=== PATIENT | male | born 1940 | race Caucasian/White ===

== ENCOUNTER 2017-08-20 06:54 | Day surgery (SDC) | payer OTHER ==
[~2017-08-20] VITALS: Ht 177.8 cm; Wt 88.9 kg
[~2017-08-20 06:54] MED LIST: ASPI81EC PO; Aspirin EC81 MG PO; CARV6.25 PO; CENTRUM SILVER1 EAC2 PO; Crestor20 MG PO; DOCU100 PO; ERGO50000 PO; GLUCOSAMINE PO; HYDACE5 PO; HYDCHL25 PO; IRON325 MG PO; Multivitamin1 EAC1 PO; NEBI5 PO; OMEP20ER PO; OXYACE5T PO; POTCHL20ER PO; RANI150 PO; ROSU10TA PO; TAMS.4ER PO; WARF4 PO; Zantac150 MG PO
[2017-08-20] MEDS ORDERED: OMEPRAZOLE MAGN20 MG PO (07:50)
[2017-08-20] MEDS ORDERED: ABAT250V (07:50)
== END 2017-08-20 22:54 | disposition home or self-care (01) ==
LOC: ORSCMMR 06:54 → ORD 08:00 → ORSCMMR 22:54
PROVIDERS: Internal Medicine Gastroenterology
PROC: 0DB48ZX Excision of Esophagogastric Junction, Via Natural or Artificial Opening Endoscopic, Diagnostic (ICD-10-PCS; principal; 2017-08-20 08:00)
PROC: 0DB68ZX Excision of Stomach, Via Natural or Artificial Opening Endoscopic, Diagnostic (ICD-10-PCS; principal; 2017-08-20 08:00)
PROC: 0DB58ZX Excision of Esophagus, Via Natural or Artificial Opening Endoscopic, Diagnostic (ICD-10-PCS; principal; 2017-08-20 08:00)
PROC: 0DJD8ZZ Inspection of Lower Intestinal Tract, Via Natural or Artificial Opening Endoscopic (ICD-10-PCS; principal; 2017-08-20 08:00)
DX: R10.13 Epigastric pain (principal); K21.9 Gastro-esophageal reflux disease without esophagitis; Z86.010 Personal history of colon polyps; K57.30 Diverticulosis of large intestine without perforation or abscess without bleeding; K64.8 Other hemorrhoids; I25.10 Atherosclerotic heart disease of native coronary artery without angina pectoris; I10 Essential (primary) hypertension; E78.00 Pure hypercholesterolemia, unspecified; G47.33 Obstructive sleep apnea (adult) (pediatric); I25.2 Old myocardial infarction; Z79.82 Long term (current) use of aspirin; Z79.899 Other long term (current) drug therapy
CPT/HCPCS: 88305; J2250; J3010; J7030

== ENCOUNTER 2017-11-06 06:06 | Day surgery (SDC) | payer OTHER ==
[~2017-11-06] VITALS: Ht 177.8 cm; Wt 87.7 kg
[~2017-11-06 06:06] MED LIST changes: +ABAT250V; +OMEPRAZOLE MAGN20 MG PO
== END 2017-11-06 12:29 | disposition home or self-care (01) ==
LOC: ORSCSDS 06:06
PROVIDERS: Otolaryngology
PROC: 09U877Z Supplement Left Tympanic Membrane with Autologous Tissue Substitute, Via Natural or Artificial Opening (ICD-10-PCS; principal; 2017-11-06 07:30)
DX: H71.13 Cholesteatoma of tympanum, bilateral (principal); I10 Essential (primary) hypertension; I25.10 Atherosclerotic heart disease of native coronary artery without angina pectoris; G47.33 Obstructive sleep apnea (adult) (pediatric); Z87.891 Personal history of nicotine dependence; K21.9 Gastro-esophageal reflux disease without esophagitis; Z79.82 Long term (current) use of aspirin; Z79.899 Other long term (current) drug therapy
CPT/HCPCS: J0171; J1100; J2250; J2370; J2405; J3010; J7120

== ENCOUNTER 2019-02-13 07:49 | Day surgery (SDC) | payer OTHER ==
[~2019-02-13] VITALS: Ht 177.8 cm; Wt 86.0 kg
[~2019-02-13 07:49] MED LIST changes: +CIPDEXSU BOTHEARS; +GLUCOSAMINE-CH1 EA21 PO; +MOVE FREE JOIN1 EACH PO
--- NOTE | 2019-02-13 09:55 | NUR ---
Ambulatory in Day Surgery Surgical site prepped with 2% Chlorhexidine cloth wipe. History, Chart, Medications and Allergies reviewed before start of procedure.Lungs clear T/O to Auscultation. Patient confirms NPO status and agrees with scheduled surgery. Patient States Post-Procedure ride home has been arranged.
--- NOTE | 2019-02-13 11:08 | NUR ---
TOOK OVER CARE OF THE PATIENT, AFTER RECEIVING REPORT FROM DAYTON YEUNG.
--- NOTE | 2019-02-13 12:22 | NUR ---
02/13/19 1222 Papa Blake STILL CATH PLACED PER HUSAM GARCIA
--- NOTE | 2019-02-13 15:43 | NUR ---
Patient up to Ambulate independently. Gait steady. Discharge instructions reviewed with patient. Patient verbalizes understanding. Copy given to patient to take home. Patient States Post-Procedure ride home has been arranged. Discharged via wheelchair to private car for ride home.
== END 2019-02-13 23:32 | disposition home or self-care (01) ==
LOC: ORSCMMR 07:49 → ORD 10:30 → ORSCMMR 23:32
PROVIDERS: Surgery
PROC: 8E0W4CZ Robotic Assisted Procedure of Trunk Region, Percutaneous Endoscopic Approach (ICD-10-PCS; principal; 2019-02-13 10:30)
PROC: 0YU64JZ Supplement Left Inguinal Region with Synthetic Substitute, Percutaneous Endoscopic Approach (ICD-10-PCS; principal; 2019-02-13 10:30)
DX: K40.91 Unilateral inguinal hernia, without obstruction or gangrene, recurrent (principal); I10 Essential (primary) hypertension; E78.5 Hyperlipidemia, unspecified; I25.10 Atherosclerotic heart disease of native coronary artery without angina pectoris; I25.2 Old myocardial infarction; G47.33 Obstructive sleep apnea (adult) (pediatric); Z87.891 Personal history of nicotine dependence; K21.9 Gastro-esophageal reflux disease without esophagitis; Z86.718 Personal history of other venous thrombosis and embolism; Z79.01 Long term (current) use of anticoagulants; Z79.82 Long term (current) use of aspirin; Z79.899 Other long term (current) drug therapy
CPT/HCPCS: 49651; S2900; A9270-GY; C1781; J0690; J1100; J1885; J2370; J2405; J2704; J2710; J3010; J7120

== ENCOUNTER → 2019-11-02 | Outpatient (CLI) | payer OTHER ==
[2019-11-02 09:06] LABS: Anion Gap 5 mmol/L (6-16); Blood Urea Nitrogen 19 mg/dL (8-24); Bun/Creatinine Ratio 18.3 (12.0-20.0); CO2, Blood 29 mmol/L (21-32); Calcium, Blood 9.2 mg/dL (8.5-10.1); Chloride, Blood 105 mmol/L (98-108); Creatinine, Blood 1.04 mg/dL (0.60-1.20); Glomerular Filtration Rate >60 (60-); Glucose, Blood 83 mg/dL (70-99); Potassium, Blood 4.2 mmol/L (3.5-5.5); Sodium, Blood 139 mmol/L (136-145)
== END ==
LOC: LAB EV 08:16 → LAB SHORT 08:16
PROVIDERS: Internal Medicine Cardiovascular Disease
DX: I25.10 Atherosclerotic heart disease of native coronary artery without angina pectoris (principal)
CPT/HCPCS: 36415; 80048

== ENCOUNTER 2020-03-22 06:03 | Day surgery (SDC) | payer OTHER ==
[~2020-03-22] VITALS: Ht 177.8 cm; Wt 81.8 kg
[~2020-03-22 06:03] MED LIST changes: +ALDACTONE25 MG PO; +ALLEGRA ALLERG180 MG PO; +CLOP75 PO; +ENTRESTO 24 MG1 EACH PO; +EZET10 PO
--- NOTE | 2020-03-22 10:30 | NUR ---
Pt received from Ham Benoit RN pt alert denies pain. Pt with left raidial site wnl, bilteral groin sites wnl with opsite dressing. Pt with iv NS 500 thien. He is cooperative, call light given. Pt will be returning for procedure in several weeks. Call light given.
--- NOTE | 2020-03-22 12:14 | NUR ---
Pt states his left wrist was causing him pain. 3 cc of air removed, with waiting 5 mins 2 more cc removed for a total of 5cc. Pulse + left radial.
--- NOTE | 2020-03-22 12:45 | NUR ---
Pt with tr-band removed site wnl. Pt given verbal instructions regarding post op care. Pt with sling on for next two days. He has put on his life vest and it is operating correctly. Pt able to walk, stand and move about. Daughter will be picking patient up today.
--- NOTE | 2020-03-22 12:49 | NUR ---
PT UP TO THE BATHROOM /C 1 PERSON ASSIST. TOLERATED WELL. -BLEEDING OR SWELLNG BILAT GROINS AND L WRIST AREA.
--- NOTE | 2020-03-22 12:57 | NUR ---
L WRIST TR BAND REMOVED. PUNCTURE AREA CLEANED /C NS AND CLOTH DOT DRSG PLACED. -BLEEDING OR SWELLLING. L WRIST SPLINT REAPPLIED. IV REMOVED. PT VERBALIZED UNDERSTANDING OF WRITTEN AND VERBAL D/C INST.
--- NOTE | 2020-03-22 13:25 | NUR ---
Pt taken out via wheelchair meeting daughter Dary. Pt is in good spirits.
[2020-05-09] MEDS ORDERED: FLUT.05NI (15:44)
== END 2020-03-22 13:30 | disposition home or self-care (01) ==
LOC: MHTC 06:03
DX: R10.9 Unspecified abdominal pain (principal); G89.29 Other chronic pain; I71.4 Abdominal aortic aneurysm, without rupture; I70.212 Atherosclerosis of native arteries of extremities with intermittent claudication, left leg; I25.10 Atherosclerotic heart disease of native coronary artery without angina pectoris; I11.0 Hypertensive heart disease with heart failure; I50.30 Unspecified diastolic (congestive) heart failure; E78.5 Hyperlipidemia, unspecified; I74.5 Embolism and thrombosis of iliac artery; I25.5 Ischemic cardiomyopathy; N40.0 Benign prostatic hyperplasia without lower urinary tract symptoms; I25.2 Old myocardial infarction; J44.9 Chronic obstructive pulmonary disease, unspecified; K21.9 Gastro-esophageal reflux disease without esophagitis; K40.90 Unilateral inguinal hernia, without obstruction or gangrene, not specified as recurrent; M10.9 Gout, unspecified; Z87.891 Personal history of nicotine dependence; Z95.1 Presence of aortocoronary bypass graft; Z96.651 Presence of right artificial knee joint; Z79.82 Long term (current) use of aspirin; Z88.8 Allergy status to other drugs, medicaments and biological substances; Z79.02 Long term (current) use of antithrombotics/antiplatelets
CPT/HCPCS: 36140; 36200; 75625; 75716; 76937; 99152; 99153; C1725; C1760; C1769; C1887; C1894; J1644; J2250; J3010; J7030; J7040; J7050; Q9967

== ENCOUNTER 2020-05-10 10:00 | Day surgery (SDC) | payer OTHER ==
[~2020-05-10] VITALS: Ht 177.8 cm; Wt 80.0 kg
[~2020-05-10 10:00] MED LIST changes: +FLUT.05NI
--- NOTE | 2020-05-10 14:47 | NUR ---
PT OUT OF BED, AMBULATES WITH STEADY GAIT. UNMEASURED VOID. LEFT GROIN SITE STABLE, SOFT NON TENDER WITH NO BLEEDING. DRESSING C/D/I. CALLS FOR RIDE HOME.
--- NOTE | 2020-05-10 15:03 | NUR ---
PT VERBALIZED UNDERSTANDING OF D/C INSTRUCTIONS. PAPERWORK PROVIDED IN FOLDER. IV REMOVED FROM LFA WITH CATH INTACT, PRESSURE DRESSING APPLIED. NO ASSISTANCE NEEDED TO GET DRESSED, PT LEFT GROIN SITE REMAINS SOFT WITH NO BLEEDING. NO ACUTE DISTRESS NOTED.
== END 2020-05-10 15:30 | disposition home or self-care (01) ==
LOC: MHTC 10:00
DX: I70.213 Atherosclerosis of native arteries of extremities with intermittent claudication, bilateral legs (principal); Z20.822 Contact with and (suspected) exposure to COVID-19
CPT/HCPCS: 37221; 37252; 75625; 75716; 76937; 99152; 99153; C1725; C1760; C1769; C1874; C1887; C1894; J1644; J2250; J3010; J7030; J7050; Q9967

== ENCOUNTER 2020-08-18 08:07 | Observation (INO) | payer OTHER ==
[~2020-08-18] VITALS: Ht 177.8 cm; Wt 81.7 kg
[2020-08-18 09:14] LABS: Alanine Aminotransfer (ALT/SGP 37 U/L (12-78); Albumin, Blood 4.1 g/dL (3.4-5.0); Albumin/Globulin Ratio 1.1 (0.8-1.8); Alk Phos 75 U/L (50-136); Anion Gap 8 mmol/L (6-16); Aspartate Aminotrans (AST/SGOT 27 U/L (12-37); Blood Urea Nitrogen 24 mg/dL (8-24); Bun/Creatinine Ratio 24.8 (12.0-20.0); CO2, Blood 23 mmol/L (21-32); Calcium, Blood 9.8 mg/dL (8.5-10.1); Chloride, Blood 106 mmol/L (98-108); Creatinine, Blood 0.97 mg/dL (0.60-1.20); Globulin, Blood 3.6 g/dL (2.2-4.0); Glomerular Filtration Rate >60 (60-); Glucose, Blood 131 mg/dL (70-99); Potassium, Blood 4.5 mmol/L (3.5-5.5); Sodium, Blood 137 mmol/L (136-145); Total Protein, Blood 7.7 g/dL (6.4-8.2)
[2020-08-18 09:38] LABS: BASOPHILS ABSOLUTE AUTO 0.05 K/mm3 (0.00-0.23); BASOPHILS PERCENT AUTO 1 % (0-2); EOSINOPHILS ABSOLUTE AUTO 0.17 K/mm3 (0.00-0.68); EOSINOPHILS PERCENT AUTO 2 % (0-6); Hematocrit 45.5 % (37.0-53.0); Hemoglobin 16.4 g/dL (13.5-17.5); IMMATURE GRAN ABSOLUTE AUTO 0.05 K/mm3 (0.00-0.10); IMMATURE GRAN PERCENT AUTO 1 % (0-1); LYMPHOCYTES ABSOLUTE AUTO 1.59 K/mm3 (0.84-5.20); LYMPHOCYTES PERCENT AUTO 16 % (21-46); MONOCYTES ABSOLUTE AUTO 0.82 K/mm3 (0.16-1.47); MONOCYTES PERCENT AUTO 8 % (4-13); Mean Corpuscular HGB 34.2 pg (26.0-34.0); Mean Corpuscular Volume 95 fL (80-100); NEUTROPHILS ABSOLUTE AUTO 7.06 K/mm3 (1.96-9.15); NEUTROPHILS PERCENT AUTO 73 % (41-73); RDW Coefficient Variation 12.5 % (11.7-14.2); RDW Standard Deviation 43.6 fL (35.1-46.3); White Blood Cell Count 9.74 K/mm3 (4.00-11.30)
[2020-08-18 09:43] LABS: Mean Platelet Volume 10.2 fL (9.1-12.4); Platelet Count 155 K/mm3 (150-400)
[2020-08-18] MEDS ORDERED: FAMO20 PO (10:01)
[2020-08-18 11:40] LABS: SARS-Cov-2 (COVID-19) PCR, MMC NEGATIVE (NEGATIVE)
[2020-08-18] MEDS ORDERED: ENTRESTO 49 MG1 EAC7 PO (11:44)
[2020-08-18] MEDS ORDERED: OMEP20ER PO (11:45)
[2020-08-18] MEDS ORDERED: CARVEDILOL12.5 MG PO (11:45)
[2020-08-18] MEDS ORDERED: SPIRONOLACTONE25 MG PO (11:46)
[2020-08-18] MEDS ORDERED: ENTRESTO 24 MG1 EAC3 PO (11:46)
--- NOTE | 2020-08-18 13:05 | NUR ---
PATIEMT ADMITTED TO ROOM VIA GURNEY AT THIS TIME. DENIES PAIN , NAUSEA, SOB, CP AT THIS TIME. ORIENTED TO ROOM, CALL LIGHT, TX PLAN. CONT TO MONITOR.
--- NOTE | 2020-08-18 17:07 | NUR ---
1315 arrived to room, pt denies abd pain or nausea. right inguinal region swelling present. pt states he has had hernia for 6 months to a year and that he has previously been able to reduce it on his own.
--- NOTE | 2020-08-18 17:09 | NUR ---
dr fernandez here to see patient and manually reduced right inguinal area hernia
== END 2020-08-18 18:34 | disposition home or self-care (01) ==
LOC: ER 08:07 → SURS 11:11 → ER 11:11 → SURS 11:12
PROVIDERS: Physician Assistant; ADMIT Family Medicine
DX: K40.30 Unilateral inguinal hernia, with obstruction, without gangrene, not specified as recurrent (principal); K56.609 Unspecified intestinal obstruction, unspecified as to partial versus complete obstruction; K44.9 Diaphragmatic hernia without obstruction or gangrene; I71.4 Abdominal aortic aneurysm, without rupture; K57.30 Diverticulosis of large intestine without perforation or abscess without bleeding; I11.0 Hypertensive heart disease with heart failure; I50.42 Chronic combined systolic (congestive) and diastolic (congestive) heart failure; I25.5 Ischemic cardiomyopathy; I25.10 Atherosclerotic heart disease of native coronary artery without angina pectoris; I95.9 Hypotension, unspecified; I25.2 Old myocardial infarction; E78.00 Pure hypercholesterolemia, unspecified; E78.5 Hyperlipidemia, unspecified; J44.9 Chronic obstructive pulmonary disease, unspecified; G47.33 Obstructive sleep apnea (adult) (pediatric); M47.812 Spondylosis without myelopathy or radiculopathy, cervical region; M47.816 Spondylosis without myelopathy or radiculopathy, lumbar region; M19.90 Unspecified osteoarthritis, unspecified site; E86.9 Volume depletion, unspecified; N40.0 Benign prostatic hyperplasia without lower urinary tract symptoms; Z87.891 Personal history of nicotine dependence; Z20.822 Contact with and (suspected) exposure to COVID-19; Z88.8 Allergy status to other drugs, medicaments and biological substances; Z79.02 Long term (current) use of antithrombotics/antiplatelets; Z79.82 Long term (current) use of aspirin; Z79.51 Long term (current) use of inhaled steroids; Z99.89 Dependence on other enabling machines and devices; Z95.1 Presence of aortocoronary bypass graft; Z95.5 Presence of coronary angioplasty implant and graft
CPT/HCPCS: 36415; 74177; 80053; 83605; 83690; 85025; 87040; 96365-59; 96375; 99285-25; A9270; C9113; J1170; J2405; J2543; J7030; Q9967; U0004

== ENCOUNTER 2020-12-30 06:01 | Day surgery (SDC) | payer OTHER ==
[~2020-12-30] VITALS: Ht 177.8 cm; Wt 83.9 kg
[~2020-12-30 06:01] MED LIST changes: +CARVEDILOL12.5 MG PO; +ENTRESTO 24 MG1 EAC3 PO; +ENTRESTO 49 MG1 EAC7 PO; +FAMO20 PO; +SPIRONOLACTONE25 MG PO
--- NOTE | 2020-12-30 06:50 | NUR ---
Ambulatory in Day Surgery History, Chart, Medications and Allergies reviewed before start of procedure. Lungs clear T/O to Auscultation. Pre-Op teaching done. Pt verbalizes understanding. Patient States Post-Procedure ride home has been arranged.
--- NOTE | 2020-12-30 11:53 | NUR ---
Patient up to Ambulate independently. Gait steady. Discharge instructions reviewed with patient. Patient verbalizes understanding. Copy given to patient to take home. Discharged via wheelchair to private car for ride home.
== END 2020-12-30 23:00 | disposition home or self-care (01) ==
LOC: ORSCMMR 06:01
PROVIDERS: Surgery
PROC: 0YU54JZ Supplement Right Inguinal Region with Synthetic Substitute, Percutaneous Endoscopic Approach (ICD-10-PCS; principal; 2020-12-30 07:30)
PROC: 8E0W4CZ Robotic Assisted Procedure of Trunk Region, Percutaneous Endoscopic Approach (ICD-10-PCS; principal; 2020-12-30 07:30)
DX: K40.90 Unilateral inguinal hernia, without obstruction or gangrene, not specified as recurrent (principal); I10 Essential (primary) hypertension; I25.10 Atherosclerotic heart disease of native coronary artery without angina pectoris; J44.9 Chronic obstructive pulmonary disease, unspecified; I50.9 Heart failure, unspecified; G47.33 Obstructive sleep apnea (adult) (pediatric); Z87.891 Personal history of nicotine dependence; K21.9 Gastro-esophageal reflux disease without esophagitis; Z79.02 Long term (current) use of antithrombotics/antiplatelets; Z79.82 Long term (current) use of aspirin; Z79.899 Other long term (current) drug therapy
CPT/HCPCS: 49650; S2900; 93005; 93010; A9270; C1781; J0330; J0461; J0690; J1100; J1885; J2250; J2370; J2405; J2704; J2710; J3010; J7120

== ENCOUNTER → 2021-04-23 | Outpatient (CLI) | payer OTHER ==
[2021-04-25 10:32] LABS: Stool Occult Bld Immuno 1 Negative (NEGATIVE)
== END | disposition home or self-care (01) ==
LOC: LAB SHORT 18:30
PROVIDERS: Family Medicine
DX: Z12.11 Encounter for screening for malignant neoplasm of colon (principal)
CPT/HCPCS: G0328

== ENCOUNTER 2022-09-13 08:07 | Day surgery (SDC) | payer OTHER ==
[~2022-09-13] VITALS: Ht 172.7 cm; Wt 82.5 kg
[2022-09-13] VITALS (18 sets, daily range): BP systolic 99–137; BP diastolic 59–81
[~2022-09-13 08:07] MED LIST changes: +ERGO400 PO; +FARXIGA10 MG PO; +MULVITA PO; +Vitamin C100 M1 PO
--- NOTE | 2022-09-13 08:34 | NUR ---
Ambulatory in Day Surgery. History, Chart, Medications and Allergies reviewed before start of procedure. Lungs clear T/O to Auscultation. Patient confirms NPO status and agrees with scheduled surgery. Pre-Op teaching done. Pt verbalizes understanding. Patient States Post-Procedure ride home has been arranged.
--- NOTE | 2022-09-13 09:55 | NUR ---
09/13/22 09Verna Delaney HISTORY, CHART, MEDICATIONS AND ALLERGIES REVIEWED BEFORE START OF PROCEDURE. PATIENT CONFIRMS NPO STATUS AND AGREES WITH SCHEDULED PROCEDURE. 3-LEAD EKG REVIEWED WITH PHYSICIAN PRIOR TO START OF PROCEDURE. MONITOR INTACT WITH CONTINUOUS PULSE OXIMETRY,CAPNOGRAPHY, 3-LEAD EKG, INTERMITTENT BP. SUPPLEMENTAL O2 TO BE TITRATED THROUGHOUT PROCEDURE TO MAINTAIN O2 SATURATION ABOVE 90%. PATIENT DETERMINED TO BE ASA APPROPRIATE FOR PROPOFOL SEDATION PRIOR TO START OF PROCEDURE BY .
--- NOTE | 2022-09-13 10:36 | NUR ---
DISCHARGE SUMMARY PT A&OX4, VSS/RA, ARNAUD PO, VOIDED, PASSING FLATUS, DENIES PAIN, IV DC'D, AMBULATORY INDEPENDENT/DRESSED SELF. DC INS PROVIDED. PT REP UNDERSTANDING THOSE INSTRUCTIONS. LEFT FLOOR VIA WC WITH DC VOL TO GO HOME WITH [employer], WITH ALL PERSONAL POSSESSIONS INCLUDING DC INS.
== END 2022-09-14 23:14 | disposition home or self-care (01) ==
LOC: ORSCMMR 08:07 → ORD 09:00 → ORSCMMR 09:00
PROVIDERS: Internal Medicine Gastroenterology
PROC: 0DBL8ZX Excision of Transverse Colon, Via Natural or Artificial Opening Endoscopic, Diagnostic (ICD-10-PCS; principal; 2022-09-13 09:00)
DX: Z12.11 Encounter for screening for malignant neoplasm of colon (principal); Z86.010 Personal history of colon polyps; D12.3 Benign neoplasm of transverse colon; K64.8 Other hemorrhoids; K57.30 Diverticulosis of large intestine without perforation or abscess without bleeding; I25.10 Atherosclerotic heart disease of native coronary artery without angina pectoris; K21.9 Gastro-esophageal reflux disease without esophagitis; I10 Essential (primary) hypertension; E78.00 Pure hypercholesterolemia, unspecified; G47.30 Sleep apnea, unspecified; Z79.82 Long term (current) use of aspirin; Z79.899 Other long term (current) drug therapy
CPT/HCPCS: 88305; J2704; J7120

== ENCOUNTER 2023-05-18 17:32 | Inpatient (IN) | payer OTHER ==
[~2023-05-18] VITALS: Ht 177.8 cm; Wt 81.1 kg
[2023-05-18] MEDS ORDERED: HYDROmorphone HCl/Pf 1MG SYR IV ONE (18:10)
[2023-05-18] MEDS ORDERED: Ondansetron HCl 2 MG / ML 2ML Vial IV ONE (18:10)
[2023-05-18 18:35] LABS: BASOPHILS ABSOLUTE AUTO 0.03 K/mm3 (0.00-0.23); BASOPHILS PERCENT AUTO 0 % (0-2); EOSINOPHILS ABSOLUTE AUTO 0.03 K/mm3 (0.00-0.68); EOSINOPHILS PERCENT AUTO 0 % (0-6); Hematocrit 46.3 % (37.0-53.0); Hemoglobin 16.1 g/dL (13.5-17.5); IMMATURE GRAN ABSOLUTE AUTO 0.03 K/mm3 (0.00-0.10); IMMATURE GRAN PERCENT AUTO 0 % (0-1); LYMPHOCYTES ABSOLUTE AUTO 1.09 K/mm3 (0.84-5.20); LYMPHOCYTES PERCENT AUTO 10 % (21-46); MONOCYTES ABSOLUTE AUTO 0.89 K/mm3 (0.16-1.47); MONOCYTES PERCENT AUTO 8 % (4-13); Mean Corpuscular HGB Conc 34.8 g/dL (31.5-36.5); Mean Corpuscular Volume 98 fL (80-100); Mean Platelet Volume 9.3 fL (9.1-12.4); NEUTROPHILS ABSOLUTE AUTO 8.73 K/mm3 (1.96-9.15); NEUTROPHILS PERCENT AUTO 81 % (41-73); Platelet Count 145 K/mm3 (150-400); RDW Coefficient Variation 13.2 % (11.7-14.2); RDW Standard Deviation 47.8 fL (35.1-46.3); Red Blood Cell Count 4.73 M/mm3 (4.30-5.90)
[2023-05-18 18:58] LABS: Albumin, Blood 3.9 g/dL (3.4-5.0); Albumin/Globulin Ratio 1.1 (0.8-1.8); Bilirubin, Total 0.9 mg/dL (0.1-1.0); Calcium, Blood 8.7 mg/dL (8.5-10.1); Creatinine, Blood 0.9 mg/dL (0.60-1.20); Globulin, Blood 3.4 g/dL (2.2-4.0); Potassium, Blood 3.5 mmol/L (3.5-5.5); Total Protein, Blood 7.3 g/dL (6.4-8.2)
[2023-05-18] MEDS ORDERED: FAMO20 PO (19:25)
[2023-05-18] MEDS ORDERED: EZETIMIBE10 M6 PO (19:26)
[2023-05-18] MEDS ORDERED: TORSE20 PO (19:27)
[2023-05-18] MEDS ORDERED: ROSUVASTATIN CA40 MG PO (19:27)
[2023-05-18 20:18] LABS: Source, Urine Clean Catch
[2023-05-18 20:20] LABS: Bilirubin, Urine Neg (Neg); Blood, Urine 1+ (Neg); Glucose Qualitative, Urine 4+ (Neg); Ketones, Urine 1+ (Neg); Leukocyte Esterase, Urine Neg (Neg); Nitrite, Urine Neg (Neg); Protein, Urine 1+ (Neg); Urobilinogen, Urine NORM (Normal)
[2023-05-18 20:28] LABS: Appearance, Urine Clear (Clear); Color, Urine Yellow (P-Yellow)
[2023-05-18 20:29] LABS: Bacteria Not Seen /hpf; Red Blood Cells, Urine 0-2 /hpf (0-2); Squamous Epithelial Cells Rare /hpf (Few); White Blood Cells, Urine Not Seen /hpf (0-5)
[2023-05-18] MEDS ORDERED: NS 1,000 ML IV SCH ×2 (21:00→22:55)
[2023-05-18] MEDS ORDERED: HYDROmorphone HCl/Pf 1MG SYR IV PRN (21:10)
[2023-05-18] MEDS ORDERED: Ondansetron HCl 2 MG / ML 2ML Vial IV PRN ×2 (21:10→22:55)
[2023-05-18] MEDS ORDERED: CARV3.125 PO (21:35)
[2023-05-18 22:34] VITALS: BP 130/76
[2023-05-18] MEDS ORDERED: FentaNYL Citrate 50 MCG/ML 2 ML Injection IV PRN (22:55)
--- NOTE | 2023-05-18 23:30 | NUR ---
2231 PT ARRIVED TO ROOM FROM ER VIA PIOTR, SON IS WITH PATIENT. PT REPORTS ZERO PAIN, SLIGHT NAUSEA BUT DOES NOT WANT ANY MEDS AT THIS TIME. PT ENCOURAGED TO CALL IF THAT CHANGES. NO OTHER APPARENT SIGNS OF DISTRESS. CALL LIGHT IS IN REACH.
--- NOTE | 2023-05-19 01:05 | NUR ---
PT REQUESTED AND RECEIVED PAIN AND NAUSEA MEDS, WILL EVAL FOR EFFECT. NO OTHER APPARENT SIGNS OF DISTRESS. CALL LIGHT IS IN REACH.
[2023-05-19 03:32] VITALS: BP 110/65
[2023-05-19 04:07] LABS: BASOPHILS ABSOLUTE AUTO 0.04 K/mm3 (0.00-0.23); BASOPHILS PERCENT AUTO 0 % (0-2); EOSINOPHILS ABSOLUTE AUTO 0.05 K/mm3 (0.00-0.68); EOSINOPHILS PERCENT AUTO 1 % (0-6); Hematocrit 44.4 % (37.0-53.0); Hemoglobin 15.1 g/dL (13.5-17.5); IMMATURE GRAN ABSOLUTE AUTO 0.03 K/mm3 (0.00-0.10); IMMATURE GRAN PERCENT AUTO 0 % (0-1); LYMPHOCYTES ABSOLUTE AUTO 1.36 K/mm3 (0.84-5.20); LYMPHOCYTES PERCENT AUTO 14 % (21-46); MONOCYTES PERCENT AUTO 8 % (4-13); Mean Corpuscular HGB 33.6 pg (26.0-34.0); Mean Corpuscular Volume 99 fL (80-100); Mean Platelet Volume 9.1 fL (9.1-12.4); NEUTROPHILS ABSOLUTE AUTO 7.29 K/mm3 (1.96-9.15); NEUTROPHILS PERCENT AUTO 76 % (41-73); Platelet Count 133 K/mm3 (150-400); RDW Coefficient Variation 13.3 % (11.7-14.2); RDW Standard Deviation 48.9 fL (35.1-46.3); Red Blood Cell Count 4.49 M/mm3 (4.30-5.90); White Blood Cell Count 9.57 K/mm3 (4.00-11.30)
[2023-05-19 04:32] LABS: Albumin, Blood 3.4 g/dL (3.4-5.0); Albumin/Globulin Ratio 1.2 (0.8-1.8); Bilirubin, Total 0.8 mg/dL (0.1-1.0); Bun/Creatinine Ratio 15.2 (12.0-20.0); Creatinine, Blood 0.79 mg/dL (0.60-1.20); Globulin, Blood 2.9 g/dL (2.2-4.0); Potassium, Blood 3.4 mmol/L (3.5-5.5); Total Protein, Blood 6.3 g/dL (6.4-8.2)
--- NOTE | 2023-05-19 05:35 | NUR ---
0330 PT LYING IN BED, AWAKE. NO APPARENT SIGNS OF DISTRESS. PT DENIES NEED FOR ANYTHING AT THIS TIME. CALL LIGHT IS IN REACH.
--- NOTE | 2023-05-19 05:36 | NUR ---
PT IS AAO X 4, ON RA. PT REPORTS ABD PAIN AND NAUSEA. GOT DILAUDED AND ZOFRAN. PT REPORTS DIARRHEA, THOUGH HAS HAD NO EPISODES SINCE ARRIVING TO ROOM. UNLESS HE IS FLUSHING THEM. HOWEVER, WHEN THE PRINTING SUPERVISOR ASKED THE PT AND WHEN I ASKED THE PT, HE STATED HE HAD NOT HAD ANOTHER BM YET. THERE IS A HAT FRONT AND BACK IN THE TOILET AND THEY HAVE REMAINED EMPTY. THERE IS A SURG CONSULT WITH DR APONTE FOR THE AM.
--- NOTE | 2023-05-19 05:41 | NUR ---
PT LYING IN BED, EYES CLOSED, APPEARS TO BE RESTING. BREATHING IS EVEN, UNLABORED. NO APPARENT SIGNS OF DISTRESS. CALL LIGHT IS IN REACH. NO OTHER CHANGES THIS SHIFT.
[2023-05-19] MEDS ORDERED: Fluticasone 0.05% Nasal Spray PRN (06:15)
[2023-05-19] MEDS ORDERED: Omeprazole 20 MG CapCR PO PRN (06:15)
[2023-05-19 07:24] VITALS: BP 103/60
[2023-05-19] MEDS ORDERED: Carvedilol 3.125 MG Tab PO SCH (08:00)
[2023-05-19] MEDS ORDERED: Aspirin 81 MG TabEC PO SCH (09:00)
[2023-05-19] MEDS ORDERED: Torsemide 20 MG TAB PO SCH (09:00)
--- NOTE | 2023-05-19 13:26 | NUR ---
MID DAY SHIFT ASSESSMENT PATIENT RESTING COMFORTABLY IN BED. AMBULATING TO BATHROOM OFTEN TO URINATE. DIET ADVANCED TO CLEAR LIQUIDS THIS AFTERNOON. AWAITING CONSULT WITH DR. APONTE. PATIENT VERY ANXIOUS TO RETURN HOME. DENIES ABDOMINAL PAIN OR DISTENSTION. PASSING FLATULENCE WITHOUT DIFFICULTY. CALL LIGHT IN PLACE.
[2023-05-19 15:44] VITALS: BP 111/75
--- NOTE | 2023-05-19 17:49 | NUR ---
SHIFT SUMMARY PT UP IN THE CHAIR MOST OF THE DAY. WALKED AROUND THE HALLWAY A COUPLE TIMES. DIET ADVANCED TO A CARDIAC, LOW FAT, LOW FIBER DIET. TOLERATING SOLIDS AT THIS TIME. POTENTIAL DISCHARGE ON 05/20/23. RIGHT AC IV SALINE LOCKED. NO BOWEL MOVEMENT TODAY. PT COMPLAINED OF NAUSEA IN THE AFTERNOON. ZOFRAN WAS GIVEN AND TOLERATED WELL. CALL LIGHT IN REACH.
--- NOTE | 2023-05-19 18:37 | NUR ---
SHIFT SUMMARY THIS RN READS ALL ROLL BUILDER DOCUMENTATION NOTES AND AGREES TO STATED FINDINGS AND ASSESSMENTS.
[2023-05-19 19:24] VITALS: BP 105/65
[2023-05-19] MEDS ORDERED: Tamsulosin HCl 0.4 MG Cap PO SCH (21:00)
[2023-05-20 03:51] VITALS: BP 109/67
--- NOTE | 2023-05-20 05:42 | NUR ---
SHIFT SUMMARY PT IS A&OX4 FORGETFUL AT TIMES. VSS ON RA, CPAP WHILE ASLEEP. DENIES PAIN. TOLERATING A HEART HEALTHY, LOW RESIDUE DIET NO N/V. PT FINISHED HIS DINNER, AND HAD SNACKS BEFORE SLEEP. UP INDEPENDENTLY IN ROOM/BR. VOIDING ADEQUATE AMOUNTS OF URINE, NO BM THIS SHIFT. BED IN LOWEST POSITION, CALL LIGHT WITHIN REACH.
[2023-05-20 07:15] VITALS: BP 92/60
--- NOTE | 2023-05-20 15:36 | NUR ---
DISCHARGE NOTE: DISCHARGE DISCUSSED WITH PATIENT; HE HAD NO QUESTIONS OR CONCERNS. HE GOT DRESS, COLLECTED HIS BELONGINGS, AND IV REMOVED. HE CALLED HIS RIDE AND HE ARRIVED TO GET PATIENT. PATIENT DECLINED TO BE WHEELED OUT BY STAFF AND AMBULATED OUT OF THE HOSPITAL. NO SIGNS OR SYMPTOMS OF DISTRESS DURING DISCHARGE.
== END 2023-05-20 15:36 | disposition home or self-care (01) | DRG 389 ==
LOC: ER 17:32 → MEDS 17:33 → ENPENDDIS 05-20 15:09 → MEDS 05-20 15:36
PROVIDERS: Physician Assistant; ADMIT Internal Medicine
DX: K56.609 Unspecified intestinal obstruction, unspecified as to partial versus complete obstruction (principal); I50.42 Chronic combined systolic (congestive) and diastolic (congestive) heart failure; I11.0 Hypertensive heart disease with heart failure; I25.10 Atherosclerotic heart disease of native coronary artery without angina pectoris; E78.5 Hyperlipidemia, unspecified; N40.0 Benign prostatic hyperplasia without lower urinary tract symptoms; M47.812 Spondylosis without myelopathy or radiculopathy, cervical region; M47.816 Spondylosis without myelopathy or radiculopathy, lumbar region; J44.9 Chronic obstructive pulmonary disease, unspecified; G47.33 Obstructive sleep apnea (adult) (pediatric); I71.43 Infrarenal abdominal aortic aneurysm, without rupture; K82.8 Other specified diseases of gallbladder; G47.30 Sleep apnea, unspecified; M19.90 Unspecified osteoarthritis, unspecified site; Z79.82 Long term (current) use of aspirin; Z79.02 Long term (current) use of antithrombotics/antiplatelets; Z79.899 Other long term (current) drug therapy; Z87.891 Personal history of nicotine dependence; Z95.1 Presence of aortocoronary bypass graft; Z95.5 Presence of coronary angioplasty implant and graft
CPT/HCPCS: 36415; 74177; 80053; 81001; 85025; 94660; 94760; 94762; 96361; 96374-59; 96375; 99285-25; A9270; J1170; J2405; J7030; Q9967